=== PATIENT | male | born 1960 ===

== ENCOUNTER 2017-10-11 06:48 | Emergency (ER) | payer OTHER ==
[~2017-10-11] VITALS: Ht 160 cm; Wt 88.5 kg
[2017-10-11] MEDS ORDERED: ZOLOFT50 MG (07:32)
[2017-10-11] MEDS ORDERED: TRAZODONE HCL100 MG (07:32)
[2017-10-11] MEDS ORDERED: ALPRAZOLAM0.5 MG PO (10:58)
== END 2017-10-11 11:43 | disposition home or self-care (01) ==
LOC: ER 06:48
DX: R53.81 Other malaise (principal); F41.8 Other specified anxiety disorders